=== PATIENT | male | born 1990 | race Caucasian/White ===

== ENCOUNTER 2019-04-02 08:28 | Day surgery (SDC) | payer BC ==
[~2019-04-02] VITALS: Ht 180.3 cm; Wt 116.3 kg
[~2019-04-02 08:28] MED LIST: BUPIVACAINE/PF 0.5% ONE; EPINEPHRINE 1 MG/ML, 1ML ONE; LIDOCAINE/PF 1%-EPI 1:200K, 30 ML ONE
[2019-04-02] MEDS ORDERED: OxyconTIN ER 20 MG TAB.ER PO ONE (09:00)
[2019-04-02] MEDS ORDERED: GABAPENTIN 300 MG CAPSULE PO ONE (09:00)
[2019-04-02] MEDS ORDERED: ACETAMINOPHEN 500 MG TABLET PO ONE (09:00)
[2019-04-02] MEDS ORDERED: DIAZEPAM 5 MG TABLET PO ONE (09:00)
[2019-04-02] MEDS ORDERED: NO HOME MEDS (09:02)
[2019-04-02] MEDS ORDERED: LACTATED RINGERS 1,000 ML IV SCH (09:09)
[2019-04-02 09:14] VITALS: BP 138/84
[2019-04-02] MEDS ORDERED: FENTANYL PF 250 MCG/5ML ONE (09:14)
[2019-04-02] MEDS ORDERED: MIDAZOLAM 1 MG/ML, 2ML ONE (09:14)
[2019-04-02] MEDS ORDERED: PLEASE ENTER HEIGHT AND WEIGHT MC SCH (09:30)
[2019-04-02] MEDS ORDERED: LIDOCAINE PF 2%, 5ML ONE (11:41)
[2019-04-02] MEDS ORDERED: MIDAZOLAM 1 MG/ML, 2ML IV PRN (12:30)
[2019-04-02] MEDS ORDERED: HYDROmorphone 2 MG/ML, 1ML IVPush PRN (12:30)
[2019-04-02] MEDS ORDERED: MEPERIDINE/PF 25MG/ML,1ML IVPush PRN (12:30)
[2019-04-02] MEDS ORDERED: ALBUTEROL/IPRATROPIUM 2.5MG/0.5MG, 3 ML NPPB PRN (12:30)
[2019-04-02] MEDS ORDERED: hydrALAzine 20 MG/ML, 1ML IV PRN (12:30)
[2019-04-02] MEDS ORDERED: FENTANYL PF 100 MCG/2ML IV PRN (12:30)
[2019-04-02] MEDS ORDERED: OXYcodone 5 MG/5 ML ORAL.SOL UDC PO PRN (12:30)
[2019-04-02] MEDS ORDERED: PROMETHAZINE 25 MG/ML, 1ML IV PRN (12:30)
[2019-04-02] MEDS ORDERED: METOPROLOL 1 MG/ML, 5ML IV PRN (12:30)
[2019-04-02] MEDS ORDERED: PROPOFOL 10 MG/ML, 20ML ONE (13:04)
[2019-04-02] MEDS ORDERED: ONDANSETRON 2MG/ML, 2ML ONE (13:04)
[2019-04-02] MEDS ORDERED: CEFAZOLIN 1,000 MG ONE (13:04)
[2019-04-02] MEDS ORDERED: DEXAMETHASONE 4 MG/ML, 1ML ONE (13:04)
[2019-04-02] MEDS ORDERED: BUPIVACAINE/PF 0.5% ONE (13:04)
[2019-04-02] MEDS ORDERED: KETOROLAC 30 MG/1 ML ONE (13:04)
== END 2019-04-02 16:32 | disposition home or self-care (01) ==
LOC: OUT 08:28
PROVIDERS: ATTEND Orthopaedic Surgery
DX: S83.511A Sprain of anterior cruciate ligament of right knee, initial encounter (principal); S83.211A Bucket-handle tear of medial meniscus, current injury, right knee, initial encounter; S83.251A Bucket-handle tear of lateral meniscus, current injury, right knee, initial encounter; M94.261 Chondromalacia, right knee; M65.861 Other synovitis and tenosynovitis, right lower leg; E11.9 Type 2 diabetes mellitus without complications; I10 Essential (primary) hypertension; Z82.61 Family history of arthritis; X58.XXXA Exposure to other specified factors, initial encounter; Y93.89 Activity, other specified; Y92.89 Other specified places as the place of occurrence of the external cause; Y99.8 Other external cause status
CPT/HCPCS: 29880; 29888; 64447; C1713; J0171; J0690; J1100; J1885; J2250; J2405; J2704; J3010; J3490; J7120